=== PATIENT | female | born 1975 | race Caucasian/White ===

== ENCOUNTER 2018-09-23 07:51 | Day surgery (SDC) | payer OTHER ==
[2018-09-23 08:12] LABS: Specific Gravity 1.025 (1.005-1.030)
[2018-09-23] MEDS ORDERED: CEFAZOLIN SODIUM 1 GM/VIAL ONE (08:20)
[2018-09-23] MEDS ORDERED: GENTAMICIN SULF 80 MG/2ML INJ ONE (08:20)
[2018-09-23] MEDS ORDERED: Mastisol Adhesive Liq ONE (08:20)
[2018-09-23] MEDS ORDERED: NS 0.9% VIAL 20 ML ONE (08:20)
[2018-09-23] MEDS ORDERED: BACITRACIN 50000 UNIT VIAL ONE (08:21)
[2018-09-23] MEDS ORDERED: Ringers Lactate 1,000 ML IV ONE ×3 (08:21→08:25)
[2018-09-23] MEDS ORDERED: SCOPOLAMINE HYDROBROMIDE PATCH TD ONE (08:25)
[2018-09-23] MEDS ORDERED: CEFAZOLIN/SWI 1gm 1 GM/10 ML SYR ONE (08:25)
[2018-09-23] MEDS ORDERED: VECURONIUM 10 MG/VIAL IV ONE ×2 (09:02→09:08)
[2018-09-23] MEDS ORDERED: PROPOFOL 200 MG/20 ML VIAL IV ONE (09:02)
[2018-09-23] MEDS ORDERED: NS 0.9% VIAL 10 ML ONE (09:02)
[2018-09-23] MEDS ORDERED: ONDANSETRON 4 MG/2 ML VIAL ONE ×2 (09:02→13:35)
[2018-09-23] MEDS ORDERED: LIDOCAINE 1% MPF 5 ML VIAL ONE (09:02)
[2018-09-23] MEDS ORDERED: FENTANYL CITR 250 MCG/5 ML ONE (09:02)
[2018-09-23] MEDS ORDERED: DEXAMETHASONE 10 MG/ML VIAL ONE (09:02)
[2018-09-23] MEDS ORDERED: MIDAZOLAM HCL 2 MG/2 ML INJ ONE (09:08)
[2018-09-23] MEDS ORDERED: NEOSTIGMINE 1 MG/ML -10 ML VIAL ONE (13:01)
[2018-09-23] MEDS ORDERED: GLYCOPYRROLATE 0.2 MG/ML SYR ONE (13:01)
[2018-09-23] MEDS ORDERED: KETOROLAC 30 MG/ML INJ ONE (13:02)
[2018-09-23] MEDS ORDERED: FENTANYL CITR 100 MCG/2 ML ONE (13:35)
[2018-09-23] MEDS: HYDROMORPHONE HCL 1 MG/ML INJ ONE ×3 (13:57→14:03)
[2018-09-23] MEDS ORDERED: ONDANSETRON HCL 40 MG/20 ML VIAL ONE (14:30)
[2018-09-23] MEDS ORDERED: CODEINE 30MG/APAP 300MG TAB ONE (15:31)
--- NOTE | 2018-09-24 01:18 | OP ---
Surgeon: Bandar Mcdaniel MD Cake Knocker: Braxton. Preoperative Diagnosis: Ruptured right breast implant and ptosis. Postoperative Diagnosis: Ruptured right breast implant and ptosis. Procedure: Explantation and lift. Anesthesia: General. Procedure In Detail: After satisfactory induction of general anesthesia, chest was prepped with Dura Prep, dry sterile drapes were applied in usual manner. A template was used to outline the right and left areola. Then the incision made with a 15 blade around the areola and 10 blade around the transverse curvilinear inferior incisions. The skin was de-epithelialized with dermabrader or E piCut and the transverse incision made with electrocautery. The flap was elevated, was 9 mm thick, t oward the sternum, clavicle, and anterior axillary line. This was done on both sides. Then an infer ior incision was made. The patient then underwent circumferential dissection underneath the pectoral is major laterally. The implant was identified and delivered. The right side was ruptured, the left side was intact. The left implant intact and weighed 442 g, the right implant shell 40 g . The patient then had the formed into cone. This was done with 2-0 PDS. After this was done, the strap was elevated at 12 o'clock, 1:30, and 3 o'clock position. Mirror image was done on the opposite side. The strap then was woven in and out of pectoralis major muscle, back to the base of cone, back to the pectoralis muscle, back to the base of the cone and sewn to themselves with 2-0 PDS. This has been from 12 o'clock and 1:30 strap. The 3 o'clock strap was sewn over the sternum at 3 o'clock position with 2-0 Ethibond. Mirror image was done on the opposite side. A 10 VITA was brou ght out of the axilla, sewn in place with 2-0 silk. The wound was closed in layers, 3-0 Vicryl subcu , 2-0 PDS running subcuticular tied in the vertical meridian of the breast on both sides, and the pat ient was sat up. Site for new nipple-areolar complex marked out. A template used. The t issue was cored out, nipple was delivered and sewn with interrupted 4-0 PDS, followed by 4-0 PDS runn ing subcuticular. Dressings consisting of tincture of benzoin, Steri-Strips, 5 x 5's, fluffs, and Ac e wrap. The patient tolerated the procedure well and returned to the recovery room. ISIS Voice ID: [id number] Report ID: [id number]
== END 2018-09-23 16:14 | disposition home or self-care (01) ==
LOC: OR 07:51
PROVIDERS: ATTEND Specialist
PROC: 0HPU0JZ Removal of Synthetic Substitute from Left Breast, Open Approach (ICD-10-PCS; 2018-09-23)
PROC: 0H0V0ZZ Alteration of Bilateral Breast, Open Approach (ICD-10-PCS; 2018-09-23)
PROC: 0HPT0JZ Removal of Synthetic Substitute from Right Breast, Open Approach (ICD-10-PCS; principal; 2018-09-23 09:00)
DX: T85.49XA Other mechanical complication of breast prosthesis and implant, initial encounter (principal); N64.81 Ptosis of breast
CPT/HCPCS: 81025; 88305; J0690; J1100; J1170; J1580; J2250; J2405; J2704; J2710; J3010